=== PATIENT | female | born 1950 | race Caucasian/White ===

== ENCOUNTER 2019-01-27 09:15 | Day surgery (SDC) ==
[2019-01-25 15:32] LABS: MCH 28.6 PG (27-31); MCHC 32.5 g/dL (33-37); MCV 88.1 FL (81-99); MPV 10.5 FL (7.4-10.4); RBC 4.54 XMIL (4.2-5.4); RDW 12.6 % (11.5-14.5); WBC 7.68 X1000 (4.8-10.8)
[2019-01-25 16:11] LABS: AGAP 10; BUN 12 mg/dL (8-22); CALCIUM 9.5 mg/dL (8.8-10.2); CHLORIDE 101 mmol/L (98-107); COSMO 277; CREATININE 0.5 mg/dL (0.5-0.9); ESTIMATED GFR > 60; GLUCOSE 131 mg/dL (70-104); POTASSIUM 4.9 mmol/L (3.5-5.1); SODIUM 138 mmol/L (136-145); TCO2 27 mmol/L (25-35)
[2019-01-25 16:12] LABS: INR 0.93; PROTIME 12.5 Seconds (11.0-16.0)
[2019-01-25 16:13] LABS: PTT 26.2 Seconds (22.3-41.8)
[2019-01-27] MEDS ORDERED: PEPCID ONE (09:44)
[2019-01-27] MEDS ORDERED: REGLAN ONE (09:44)
[2019-01-27] MEDS ORDERED: KEFZOL 1 GM/D5W 1 GM/50 ML IVPB ONE (09:44)
[2019-01-27] MEDS ORDERED: LR 1,000 ML ONE (09:44)
[2019-01-27] MEDS ORDERED: DIPRIVAN 1% ONE (09:55)
[2019-01-27] MEDS ORDERED: XYLOCAINE-MPF 2% ONE (09:56)
[2019-01-27] MEDS ORDERED: ROBINUL ONE (09:56)
[2019-01-27] MEDS: KEFZOL 1 GM/D5W 1 GM/50 ML IVPB ONE ×2 (10:05→11:25)
[2019-01-27] MEDS ORDERED: SENSORCAINE 0.25%/EPI 1:200,000 ONE (10:22)
[2019-01-27] MEDS ORDERED: SODIUM CHLORIDE 0.9% ONE (10:23)
[2019-01-27] MEDS ORDERED: METROGEL-VAGINAL 0.75% GEL ONE (10:23)
[2019-01-27] MEDS ORDERED: BACITRACIN ONE (10:24)
[2019-01-27] MEDS ORDERED: NEOSPORIN G.U. IRRIGANT ONE (10:26)
[2019-01-27] MEDS ORDERED: OFIRMEV 1000 MG/ISOTONIC SOLN 1,000 MG/100 ML BOTTLE ONE (11:31)
[2019-01-27] MEDS ORDERED: ZOFRAN ONE (11:31)
[2019-01-27] MEDS ORDERED: DECADRON ONE (11:31)
[2019-01-27] MEDS ORDERED: TORADOL ONE (11:31)
[2019-01-27] MEDS ORDERED: DILAUDID ONE (12:24)
[2019-01-27] MEDS ORDERED: AK-FLUOR ONE (12:33)
[2019-01-27] MEDS ORDERED: D5 1/2 NS 1,000 ML ONE (14:08)
[2019-01-27] MEDS: DILAUDID ONE ×4 (14:12→14:35)
[2019-01-27] MEDS ORDERED: MORPHINE IV PRN (15:57)
[2019-01-27] MEDS ORDERED: NORCO-7.5 PO PRN (16:00)
[2019-01-27] MEDS ORDERED: LABETALOL IV PRN (16:00)
[2019-01-27] MEDS ORDERED: PHENERGAN PR PRN (16:00)
[2019-01-27] MEDS ORDERED: PHENERGAN IV PRN (16:00)
[2019-01-27] MEDS ORDERED: NORCO-5 PO PRN (16:00)
[2019-01-27] MEDS ORDERED: SODIUM CHLORIDE 0.9% INJ PRN (16:00)
[2019-01-27] MEDS ORDERED: OFIRMEV 1000 MG/ISOTONIC SOLN 1,000 MG/100 ML BOTTLE IV PRN (16:00)
[2019-01-27] MEDS ORDERED: DITROPAN PO PRN (16:00)
[2019-01-27] MEDS ORDERED: PHENERGAN PO PRN (16:00)
[2019-01-27] MEDS ORDERED: DILAUDID IV PRN (16:00)
[2019-01-27] MEDS ORDERED: ZOFRAN IV PRN (16:00)
[2019-01-27] MEDS ORDERED: BENTYL PO PRN (18:33)
[2019-01-27] MEDS ORDERED: NORCO-10 PO SCH (21:00)
[2019-01-27] MEDS ORDERED: NORVASC PO SCH (21:00)
[2019-01-27] MEDS ORDERED: LIPITOR PO SCH (21:00)
[2019-01-27] MEDS ORDERED: ZANAFLEX PO SCH (21:00)
[2019-01-27] MEDS ORDERED: SULINDAC 200 MG PO SCH (21:00)
[2019-01-27] MEDS ORDERED: CYMBALTA PO SCH (21:00)
[2019-01-27] MEDS: D5 1/2 NS 1,000 ML IV SCH (21:30)
[2019-01-27] MEDS: KEFZOL 2 GM/D5W 2 GM/50 ML IVPB IV SCH (21:31)
[2019-01-27] MEDS: NEURONTIN PO SCH (21:35)
[2019-01-27] MEDS: COLACE PO SCH (21:36)
[2019-01-27] MEDS: COREG PO SCH (21:37)
[2019-01-27] MEDS: PERIDEX MT SCH (21:37)
[2019-01-27] MEDS: TORADOL IV SCH (21:44)
[2019-01-27] MEDS: NORCO-10 PO PRN (22:00)
[2019-01-27] MEDS: SULINDAC PO SCH (22:02)
[2019-01-28] MEDS: NORCO-10 PO PRN ×3 (02:53→10:57)
[2019-01-28] MEDS: TORADOL IV SCH ×2 (02:54→09:21)
[2019-01-28] MEDS: KEFZOL 2 GM/D5W 2 GM/50 ML IVPB IV SCH (04:11)
[2019-01-28] MEDS: D5 1/2 NS 1,000 ML IV SCH (04:13)
[2019-01-28 05:03] LABS: URINE SOURCE CATH
[2019-01-28 05:06] LABS: BILIRUBIN URINE NEGATIVE (NEGATIVE); BLOOD URINE TRACE (NEGATIVE); COLOR YELLOW; GLUCOSE URINE 200 mg/dL (NEGATIVE); KETONE URINE NEGATIVE (NEGATIVE); LEUKOCYTES URINE NEGATIVE (NEGATIVE); NITRITE URINE NEGATIVE (NEGATIVE); PH URINE 6.5; PROTEIN URINE NEGATIVE (NEGATIVE); SP GRAVITY URINE 1.005; TURBIDITY URINE CLEAR (CLEAR); UROBILINOGEN URINE NORMAL (NORMAL)
[2019-01-28 05:07] LABS: UR EPITHELIAL CELLS <10 /HPF (<10); URINE BACTERIA NEGATIVE /HPF; URINE RBC <10 /HPF (<10); URINE WBC <10 /HPF (<10)
[2019-01-28 06:30] LABS: BASO# 0.01 X1000 (0.0-0.2); BASO% 0.1 % (0.0-0.8); HEMATOCRIT 34.9 % (37.0-47.0); HEMOGLOBIN 11.5 g/dL (12.0-16.0); IMM GRAN# 0.04 X1000 (0.0-0.04); IMM GRAN% 0.4 % (0.0-0.5); LYMPH% 17.9 % (20.5-51.1); MCH 28.8 PG (27-31); MCV 87.3 FL (81-99); MONO# 0.47 X1000 (0.11-0.59); MONO% 4.7 % (1.7-9.3); MPV 11.2 FL (7.4-10.4); NEUT# 7.75 X1000 (1.4-6.5); NEUT% 76.9 % (42.2-75.2); PLT 204 X1000 (130-400); RDW 11.9 % (11.5-14.5); WBC 10.07 X1000 (4.8-10.8)
[2019-01-28 07:02] LABS: AGAP 11; BUN 9 mg/dL (8-22); CALCIUM 8.4 mg/dL (8.8-10.2); CHLORIDE 98 mmol/L (98-107); COSMO 279; CREATININE 0.6 mg/dL (0.5-0.9); ESTIMATED GFR > 60; GLUCOSE 218 mg/dL (70-104); POTASSIUM 4.2 mmol/L (3.5-5.1); SODIUM 137 mmol/L (136-145); TCO2 28 mmol/L (25-35)
[2019-01-28 08:39] VITALS: BP 139/73
[2019-01-28] MEDS ORDERED: PRILOSEC PO SCH (09:00)
[2019-01-28] MEDS: NEURONTIN PO SCH (09:19)
[2019-01-28] MEDS: COLACE PO SCH (09:20)
[2019-01-28] MEDS: COREG PO SCH (09:21)
[2019-01-28] MEDS: SULINDAC PO SCH (09:34)
[2019-01-28] MEDS ORDERED: PNEUMOVAX 23 IM ONE (09:45)
[2019-01-28] MEDS: PERIDEX MT SCH (10:49)
--- NOTE | 2019-03-03 08:18 | OPERATIVE NOTE ---
PROCEDURE DATE: 01/27/2019 SURGEON: Mario Cutler MD. PREOPERATIVE DIAGNOSIS: Symptomatic cystocele, symptomatic rectocele, vaginal vault prolapse, stress urinary incontinence. POSTOPERATIVE DIAGNOSIS: Symptomatic cystocele, symptomatic rectocele, vaginal vault prolapse, stress urinary incontinence. PROCEDURE: Cystocele repair with Chevak dermis graft, rectocele repair with Chevak dermis graft, extraperitoneal vaginal vault suspension, placement of Altis mid urethral sling, cystourethroscopy times 2. INDICATIONS: A 68-year-old female, who has developed symptomatic pelvic prolapse. She has had a previous work by another urogynecologist and a part time. She desires intervention. FINDINGS: Cystourethroscopy after cystocele repair revealing no evidence of injury to the bladder, urethra and bilateral clear ureteral efflux was seen. Cystourethroscopy after Altis sling placement showed no evidence of bladder or urethral injury and bilateral clear ureteral efflux. Digital rectal examination after rectocele repair demonstrated no palpable rectal injury. DESCRIPTION OF PROCEDURE IN DETAIL: After obtaining informed consent, patient was brought to the operating room. Perioperative antibiotics and laryngeal mask anesthesia were administered. She was placed in exaggerated lithotomy position with her lower extremities appropriately padded. She was prepped and draped in sterile fashion. A 16-Azeri Shafer catheter was introduced and the bladder was drained. Colorectal retractor was used for exposure. We then identified her anterior compartment prolapse, and 2 Allis clamps were placed; one at the level of the vaginal cuff and another one at the level of the bladder neck. Then, 40 mL of Marcaine with epinephrine diluted 50:50 with normal saline were introduced for both hydrodissection and local anesthetic. We then made an approximately 5 cm vertical incision. Metzenbaum scissors were used to achieve full vaginal epithelium thickness dissection. Surgeon's finger was then used to free the bladder off of the anterior vaginal wall laterally on either side. Eventually ischial spines were palpable bilaterally, as well as sacrospinous ligaments. I freed off approximately 3 cm space medial from the ischial spine with the finger sweep. Examination revealed no evidence of significant bleeding. Once that was done, we dissected anteriorly toward the bladder neck with Metzenbaum scissors and posteriorly toward the vaginal cuff. The 2-0 PDS sutures x2 we then placed to the level of the vaginal cuff and secured with hemostats. We then opened up 8 x 12 cm Chevak dermis graft, and soaked it in normal saline for approximately 5 minutes. Demarcation was made along the graft to map out a piece suitable for her prolapse repair. Heavy scissors were used to trim the graft and customize it to her anatomy. We then used the Anchorsure device to deploy PDS sutures through the sacrospinous ligament approximately 2 fingerbreadths medial to the ischial spine bilaterally. Free needle was then used to thread the sutures through the proximal arms of the graft. I then placed two more 2-0 PDS sutures; one in each distal arm of the mesh, and then through the obturator membrane. The proximal mesh arms were tightened; so were the distal mesh arms. This allowed us to reduce the cystocele nicely. Graft appeared to lie flat without redundancy or kinking. The previously-placed vaginal cuff sutures were then introduced through the midline posterior aspect of the graft and tied down as well. Two more 2-0 PDS sutures were used to secure the graft to the level of the bladder neck. Following that, the wound was irrigated and inspected for hemostasis and was excellent. We then removed Shafer catheter, introduced rigid cystoscope with a 70-degree lens. Examination of the urethra and bladder showed no evidence of injury to the bladder mucosa, and I was able to visualize bilateral ureteral efflux which was clear. There was no graft visible in the bladder. Subsequent to that, the cystoscope was removed and Shafer catheter was reinserted. We then used a 2-0 running Vicryl suture and closed the deeper vaginal layers over the graft to assist with imbibition. The wound was irrigated and then another 2-0 Vicryl suture was used to close the vaginal epithelium in a running fashion locking every other suture. She had approximately half a centimeter of redundant vaginal tissue on the left side and 1 cm on the right side that was excised and discarded. Attention was then turned to posterior repair. Allis clamps were used to secure the vaginal cuff and distal most part of her rectum. We then introduced 20 mL of previously mixed Marcaine with epinephrine diluted 50:50 with normal saline for hydrodissection and local anesthetic. Following that, an approximately 4 cm incision was made vertically with a 15 blade. Dissection extended with Metzenbaum scissors through the entire vaginal epithelial thickness. The rectum was swept off the posterior vaginal wall and surgeon's finger was used to free up the space adjacent to the sacrospinous ligaments. I was able to appreciate the previously-placed sutures for anterior repair of the ligament. Hemostasis was excellent. Anchorsure device was used again to deploy PDS sutures into the sacrospinous ligament just medial to the previously-placed anterior sutures. They were tugged on and appeared to be in good position. I then placed 2-0 PDS sutures x2 in the vaginal cuff posteriorly. Following that, the sutures placed into the sacrospinous ligament were tightened down, and the vaginal apex sutures were threaded with a free needle through the superior midline portion of the graft. The graft appeared to lie flat without redundancy, and the rectocele was reduced nicely. I then used interrupted 2-0 Vicryl sutures to secure the graft to the vaginal epithelium on either side. Eventually, the graft tapered to the level of the perineum. Following that, a digital rectal examination was performed revealing no obvious palpable injury to the rectum. The wound was copiously irrigated. A 2-0 Vicryl suture was used to close the layer of vaginal tissue over the graft to again help with imbibition. This was followed by irrigation closure of the posterior vaginal incision with a running 2-0 Vicryl suture, locking every other suture. Attention was then turned to placement of Altis mid urethral sling. Approximately 10 mL of Marcaine diluted with epinephrine with normal saline 50:50 percent were used to hydro dissect mid urethral area. A 3 cm incision was made over the mid urethra, and dissection extended with Metzenbaum scissors to free up periurethral tissues. Eventually surgeon's finger was able to palpate the rami and obturator membrane. The sling was opened on the back table and soaked in the saline. Per liquid natural gas plant operator instructions, helical trocars were used in the inside-out fashion to place the sling through the obturator membrane. The sling appeared to lie flat along the level of the mid urethra. There was no evidence of kinking. I then removed Shafer catheter and introduced rigid cystoscope with 70-degree lens. Inspection revealed no evidence of injury to the urethra or the bladder. I was able to visualize bilateral clear ureteral efflux. Following that, we removed the cystoscope and reintroduced Shafer catheter. The wound was irrigated and upon inspection there was excellent hemostasis. A 3-0 Vicryl suture was used in a running fashion to close the incision after the tightening suture was cut. Vaginal packing was then introduced which was previously coated with metronidazole. Shafer catheter was secured to her leg. She was extubated and taken to PACU for further recovery. ESTIMATED BLOOD LOSS: 30 mL. COMPLICATIONS: None. DRAINS: 16-Azeri Shafer catheter. REMOVED SPECIMENS: Redundant anterior vaginal epithelium which was discarded. DISPOSITION: To PACU. cc: Mario Cutler MD
== END 2019-01-28 11:14 | disposition home or self-care (01) ==
LOC: OPS 09:15 → PAT 09:15 → 4N 15:33 → OPS 01-28 11:14
PROVIDERS: ATTEND Urology